=== PATIENT | female | born 1960 | race Caucasian/White ===

== ENCOUNTER 2017-02-13 15:34 | Emergency (ER) | payer MEDICARE ==
[~2017-02-13] VITALS: Ht 160 cm; Wt 41.2 kg
[~2017-02-13 15:34] MED LIST: ARIP20TA8 PO; ARIP2TAB PO; CLON0.5T PO; ESCI5TAB7 PO; MIRT7.5T8 PO
[2017-02-13 15:35] VITALS: BP 95/64
== END 2017-02-13 16:26 | disposition home or self-care (01) ==
LOC: ED 16:20
DX: L25.8 Unspecified contact dermatitis due to other agents (principal); T63.301A Toxic effect of unspecified spider venom, accidental (unintentional), initial encounter; Y92.89 Other specified places as the place of occurrence of the external cause; L24.9 Irritant contact dermatitis, unspecified cause
CPT/HCPCS: 99283

== ENCOUNTER 2019-02-12 18:16 | Emergency (ER) | payer MEDICARE, MEDICAID ==
[~2019-02-12] VITALS: Ht 160 cm; Wt 47.4 kg
[~2019-02-12 18:16] MED LIST changes: +ARIP20TA5 PO; -ARIP20TA8 PO; -ARIP2TAB PO; +ARIP2TAB2 PO
[2019-02-12 18:22] VITALS: BP 104/47
== END 2019-02-12 19:54 | disposition home or self-care (01) ==
LOC: ED 19:48
DX: L03.115 Cellulitis of right lower limb (principal); Z72.9 Problem related to lifestyle, unspecified; F31.9 Bipolar disorder, unspecified; F17.200 Nicotine dependence, unspecified, uncomplicated
CPT/HCPCS: 99283

== ENCOUNTER 2019-06-16 04:21 | Emergency (ER) | payer MEDICARE, MEDICAID ==
[~2019-06-16] VITALS: Ht 157.5 cm; Wt 45.7 kg
[2019-06-16 04:26] VITALS: BP 87/46
== END 2019-06-16 05:45 | disposition home or self-care (01) ==
LOC: ED 04:46
DX: T76.21XA Adult sexual abuse, suspected, initial encounter (principal); F15.950 Other stimulant use, unspecified with stimulant-induced psychotic disorder with delusions; F31.9 Bipolar disorder, unspecified; Y04.8XXA Assault by other bodily force, initial encounter; Y93.89 Activity, other specified; Y92.89 Other specified places as the place of occurrence of the external cause; Y99.8 Other external cause status
CPT/HCPCS: 99281

== ENCOUNTER 2019-11-10 14:50 | Emergency (ER) | payer MEDICAID, MEDICARE ==
[~2019-11-10] VITALS: Ht 160 cm; Wt 48.9 kg
[2019-11-10 15:09] VITALS: BP 108/49
[2019-11-10] MEDS ORDERED: LIDOCAINE-MPF 1%, 5ML ONE (15:29)
== END 2019-11-10 16:03 | disposition home or self-care (01) ==
LOC: ED 15:50
DX: N75.1 Abscess of Bartholin's gland (principal); F17.210 Nicotine dependence, cigarettes, uncomplicated
CPT/HCPCS: 99283

== ENCOUNTER 2020-01-23 13:38 | Emergency (ER) | payer MEDICAID, MEDICARE ==
[~2020-01-23] VITALS: Ht 160 cm; Wt 49.6 kg
[2020-01-23 13:45] VITALS: BP 104/44
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
[2020-01-23] MEDS ORDERED: AZITHROMYCIN 500 MG TABLET PO ONE (14:30)
[2020-01-23] MEDS ORDERED: CEFTRIAXONE 1,000 MG IM ONE (14:30)
[2020-01-23] MEDS ORDERED: AZITHROMYCIN 500 MG TABLET ONE (14:32)
[2020-01-23] MEDS ORDERED: CEFTRIAXONE 1,000 MG ONE (14:33)
== END 2020-01-23 15:08 | disposition home or self-care (01) ==
LOC: ED 14:00
DX: T74.21XA Adult sexual abuse, confirmed, initial encounter (principal); F17.210 Nicotine dependence, cigarettes, uncomplicated; Y04.8XXA Assault by other bodily force, initial encounter; Y93.89 Activity, other specified; Y92.89 Other specified places as the place of occurrence of the external cause; Y99.8 Other external cause status
CPT/HCPCS: 96372; 99283; J0696

== ENCOUNTER 2020-03-18 13:46 | Emergency (ER) | payer MEDICARE, MEDICAID ==
[~2020-03-18] VITALS: Ht 160 cm; Wt 49.2 kg
--- NOTE | 2020-03-18 13:50 | NUR ---
NIL X 1 @ [id number]
--- NOTE | 2020-03-18 14:40 | NUR ---
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
[2020-03-18] MEDS ORDERED: BUSP15TA PO (15:08)
[2020-03-18 15:10] VITALS: BP 101/51
[2020-03-18 15:29] LABS: MICROSCOPIC NOT IND
== END 2020-03-18 15:59 | disposition home or self-care (01) ==
LOC: ED 15:21
DX: N75.1 Abscess of Bartholin's gland (principal)
CPT/HCPCS: 81003; 99283

== ENCOUNTER 2020-03-20 15:27 | Emergency (ER) | payer MEDICARE, MEDICAID ==
[~2020-03-20] VITALS: Ht 160 cm; Wt 48.0 kg
[~2020-03-20 15:27] MED LIST changes: +BUSP15TA PO
[2020-03-20 15:29] VITALS: BP 132/85
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
== END 2020-03-20 16:29 | disposition home or self-care (01) ==
LOC: ED 15:53
DX: L03.116 Cellulitis of left lower limb (principal); M79.672 Pain in left foot
CPT/HCPCS: 99281